=== PATIENT | female | born 1955 ===

== ENCOUNTER 2018-03-27 09:58 | Outpatient (CLI) | payer OTHER ==
[~2018-03-27] VITALS: Ht 152.4 cm; Wt 67.1 kg
== END 2018-03-27 11:51 | disposition home or self-care (01) ==
LOC: OFIC 805 09:58
DX: J32.8 Other chronic sinusitis (principal); R09.81 Nasal congestion; H61.23 Impacted cerumen, bilateral

== ENCOUNTER 2018-05-04 08:54 | Outpatient (CLI) | payer OTHER ==
[~2018-05-04] VITALS: Ht 152.4 cm; Wt 67.1 kg
== END 2018-05-04 09:15 | disposition home or self-care (01) ==
LOC: OFIC 805 08:54
DX: J32.8 Other chronic sinusitis (principal); R09.81 Nasal congestion; H61.23 Impacted cerumen, bilateral